=== PATIENT | female | born 1990 | race Caucasian/White ===

== ENCOUNTER → 2019-04-01 | Outpatient (CLI) | payer SELFPAY ==
[2019-04-02 00:19] LABS: Appearance,Urine Clear (Clear); Bilirubin,Urine Negative (Negative); Blood,Urine Negative (Negative); Color,Urine Yellow; Glucose,Urine (UA) Negative (Negative); Ketones,Urine 3+ (Negative); Leukocyte Esterase,Urine Negative (Negative); Nitrite,Urine Negative (Negative); PH, Urine 6.5 (5.0-8.0); Protein,Urine Trace (Negative); Specific Gravity,Urine 1.018 (1.001-1.035); Urobilinogen,Urine <2.0 mg/dL (<2.0)
[2019-04-02 01:20] VITALS: BP 99/54; PULSE 114; RESP 18; TEMP 97.5
--- NOTE | 2019-04-03 09:37 | P.MSEPDOC ---
Presenting Problems - Arrival Data Date of Arrival on Unit: 04/02/19 Time of Arrival on Unit: 23:44 Mode of Transport: Wheelchair - Complaint Comment: pt presents to triage for abd pain and cramping Medical History - Information : 4 Para: 3 Term: 3 : 0 Abortions: Spontaneous or Elective: 0 Number of Living Children: 3 - Gestational Age Gestational Age by KENNEY (wks/days): 29 Weeks and 5 Days - History Complications: Prior , Smoker Review of Systems - Review of Systems Constitutional: No problems Breast: No problems ENT: No problems Cardiovascular: No problems Respiratory: No problems Gastrointestinal: No problems Genitourinary: No problems Musculoskeletal: No problems Neurological: No problems Skin: No problems Vital Signs - Temperature Temperature: 97.5 F Temperature Source: Temporal Artery Scan - Pulse Right Brachial Pulse Rate: 114 Pulse Assessment Method: Automatic Cuff - Respirations Respiratory Rate: 18 Oxygen Delivery Method: Room Air - Blood Pressure Right Arm Blood Pressure: 99/54 Blood Pressure Mean: 69 Blood Pressure Source: Automatic Cuff Medical Screen Scoring (Pre) - Cervical Exam Dilation: 0 cm = 0 Effacement: Exam Deferred Membranes: Intact - Uterine Contractions Frequency: N/A, Scheduled / = 6 Duration: N/A Intensity: N/A - Maternal Vital Signs Maternal Temperature: N/A Signs of Preeclampsia: N/A Maternal Respirations: N/A - Maternal Trauma Maternal Trauma: N/A - Assessment - Baby A Baseline FHR: 140 Heart Rate - NICHD Category: Category I (Normal) = 0 NST: Reactive Position: N/A Station: N/A - Total Score - Baby A Total Score - Baby A: 6 - Total Score - Baby B Total Score - Baby B: 6 - Total Score - Baby C Total Score - Baby C: 6 - Level of Risk - Baby A Level of Risk - Baby A: Medium (6-9) - Level of Risk - Baby B Level of Risk - Baby B: Medium (6-9) - Level of Risk - Baby C Level of Risk - Baby C: Medium (6-9) Physician Notification (Pre) - Physician Notified Physician Notified Date: 04/02/19 Physician Notified Time: 00:45 Physician/Practitioner Notifed:: Dr. Kaplan Spoke With: Dr. Kaplan New Order Received: Yes - Notification Comment Comment: discharg pt home, follow up at next appt Disposition - Disposition OB Disposition: Triage, Discharge to home, Written follow up instructions reviewed Discharge Date: 04/02/19 Discharge Time: 00:55 I agree with the RN Medical Screening Exam: Yes Risk & Benefit of care provided described in d/c instruction: Yes Diagnosis: FALSE LABOR BEFORE 37 COMPLETED WEEKS OF GEST, THIRD TRI
== END | disposition home or self-care (01) ==
LOC: FBPOP 23:44
PROVIDERS: ATTEND Obstetrics & Gynecology
DX: O47.03 False labor before 37 completed weeks of gestation, third trimester (principal); Z3A.29 29 weeks gestation of pregnancy
CPT/HCPCS: 59025; 81003; 99213

== ENCOUNTER 2019-05-14 23:35 | Outpatient (CLI) | payer SELFPAY ==
[2019-05-15 00:08] LABS: Appearance,Urine Clear (Clear); Bilirubin,Urine Negative (Negative); Blood,Urine Negative (Negative); Color,Urine Light Yellow; Glucose,Urine (UA) Negative (Negative); Ketones,Urine Negative (Negative); Leukocyte Esterase,Urine Negative (Negative); Nitrite,Urine Negative (Negative); PH, Urine 7.5 (5.0-8.0); Protein,Urine Negative (Negative); Specific Gravity,Urine 1.006 (1.001-1.035); Urobilinogen,Urine <2.0 mg/dL (<2.0)
[2019-05-15 00:36] LABS: Amphetamine Screen,Urine Not Detected (NotDetected); Barbiturate Screen,Urine Not Detected (NotDetected); Benzodiazepines Screen,Urine Not Detected (NotDetected); Cocaine Screen,Urine Not Detected (NotDetected); Methadone Screen, Urine Not Detected (NotDetected); Opiate Screen,Urine Not Detected (NotDetected); Oxycodone Screen, Urine Not Detected (NotDetected); Phencyclidine Screen,Urine Not Detected (NotDetected); Tricyclic Antidepressant,Urine Not Detected (NotDetected); Urn Cannabinoid Scrn Detected (NotDetected)
[2019-05-15 01:25] LABS: ALT 18 U/L (9-52); AST 22 U/L (14-36); African American GFR (CKD) >90 (>60 ml/min/1.73 sqM); Albumin 3.6 g/dL (3.5-5.0); Alkaline Phosphatase 168 U/L (38-126); Anion Gap 9 mmol/L; Blood Urea Nitrogen 7 mg/dL (7-17); Calcium 8.9 mg/dL (8.4-10.2); Carbon Dioxide 20 mmol/L (22-30); Chloride 106 mmol/L (98-107); Glucose 74 mg/dL (74-99); Potassium 3.9 mmol/L (3.5-5.1); Sodium 135 mmol/L (137-145); Total Bilirubin 0.5 mg/dL (0.2-1.3); Total Protein 6.6 g/dL (6.3-8.2)
--- NOTE | 2019-05-15 02:02 | US ---
EXAM: US Abdomen Complete CLINICAL HISTORY: ITS.REASON US Reason: cholelithiasis TECHNIQUE: Real-time ultrasound of the abdomen (complete) with image documentation. COMPARISON: No relevant prior studies available. FINDINGS: Liver: 20 cm. No mass. No intrahepatic bile duct dilation. Gallbladder: No gallstones. No pericholecystic fluid. No gallbladder wall thickening. Negative Richards's sign. Common bile duct: Not visualized. Pancreas: Obscured. Kidneys: 13 cm right and 12 cm (No stones. Dilated right renal pelvis and possible ureter. Left kidney is normal. Spleen: Unremarkable. 11 cm. Aorta: No aneurysm. Inferior vena cava: Unremarkable. IMPRESSION: 1. Hepatomegaly. 2. Gallbladder appears unremarkable. 3. right kidney demonstrates possible right hydronephrosis versus pelvocaliectasis. No definite stone is identified.
--- NOTE | 2019-05-24 11:23 | P.MSEPDOC ---
Presenting Problems - Arrival Data Date of Arrival on Unit: 05/15/19 Time of Arrival on Unit: 23:39 Mode of Transport: Portable Physician Notification (Pre) - Notification Comment Comment: Dr Dumas at bedside Disposition - Disposition Discharge Date: 05/15/19 Discharge Time: 02:09 I agree with the RN Medical Screening Exam: Yes Risk & Benefit of care provided described in d/c instruction: Yes Diagnosis: CHOLECYSTITIS, UNSPECIFIED
== END 2019-05-15 02:10 | disposition home or self-care (01) ==
LOC: FBPOP 23:35
PROVIDERS: ATTEND Obstetrics & Gynecology
DX: O99.619 Diseases of the digestive system complicating pregnancy, unspecified trimester (principal); K81.9 Cholecystitis, unspecified; Z3A.00 Weeks of gestation of pregnancy not specified
CPT/HCPCS: 59025; 76700; 80053; 80306; 81003; 99213

== ENCOUNTER 2019-05-22 20:42 | Outpatient (CLI) | payer OTHER ==
[2019-05-22 21:41] LABS: Appearance,Urine Cloudy (Clear); Bilirubin,Urine Negative (Negative); Blood,Urine Negative (Negative); Color,Urine Yellow; Glucose,Urine (UA) Negative (Negative); Ketones,Urine Negative (Negative); Leukocyte Esterase,Urine Negative (Negative); Mucus,Urine Rare /hpf; Nitrite,Urine Negative (Negative); Protein,Urine Negative (Negative); Specific Gravity,Urine 1.013 (1.001-1.035); Squamous Epithelial Cell,Urine <1 /hpf (0-4); Urobilinogen,Urine <2.0 mg/dL (<2.0); WBC,Urine 2 /hpf (0-5)
[2019-05-22 21:53] LABS: Amphetamine Screen,Urine Not Detected (NotDetected); Barbiturate Screen,Urine Not Detected (NotDetected); Benzodiazepines Screen,Urine Not Detected (NotDetected); Cocaine Screen,Urine Not Detected (NotDetected); Methadone Screen, Urine Not Detected (NotDetected); Opiate Screen,Urine Not Detected (NotDetected); Oxycodone Screen, Urine Not Detected (NotDetected); Phencyclidine Screen,Urine Not Detected (NotDetected); Tricyclic Antidepressant,Urine Not Detected (NotDetected); Urn Cannabinoid Scrn Detected (NotDetected)
[2019-05-22 21:54] VITALS: BP 113/62; PULSE 117; RESP 16; TEMP 98
--- NOTE | 2019-05-22 22:39 | P.MSEPDOC ---
Presenting Problems - Arrival Data Date of Arrival on Unit: 05/22/19 Time of Arrival on Unit: 20:42 Mode of Transport: Ambulatory - Complaint OB-Reason for Admission/Chief Complaint: Possible Onset of Labor Comment: Contractions 3 time an hour since 1800 Medical History - Information : 4 Para: 3 Term: 3 : 0 Abortions: Spontaneous or Elective: 0 Number of Living Children: 3 - Gestational Age Gestational Age by KENNEY (wks/days): 36 Weeks and 6 Days - History Complications: Smoker, Hx. Substance Abuse Comment: THC Review of Systems - Review of Systems Constitutional: No problems Breast: No problems ENT: No problems Cardiovascular: No problems Respiratory: No problems Gastrointestinal: No problems Genitourinary: No problems Musculoskeletal: No problems Neurological: No problems Skin: No problems Vital Signs - Temperature Temperature: 98 F Temperature Source: Oral - Pulse Right Brachial Pulse Rate: 117 Pulse Assessment Method: Pulse Oximetry - Respirations Respiratory Rate: 16 Oxygen Delivery Method: Room Air - Blood Pressure Right Arm Blood Pressure: 113/62 Blood Pressure Mean: 79 Blood Pressure Source: Automatic Cuff Medical Screen Scoring (Pre) - Cervical Exam Dilation: Exam Deferred Effacement: Exam Deferred Membranes: Intact - Uterine Contractions Frequency: > 5 minutes apart = 1 Duration: > 40 seconds = 2 Intensity: N/A - Maternal Vital Signs Maternal Temperature: N/A Signs of Preeclampsia: N/A Maternal Respirations: N/A - Maternal Trauma Maternal Trauma: N/A - Assessment - Baby A Baseline FHR: 135 Heart Rate - NICHD Category: Category I (Normal) = 0 NST: Reactive - Total Score - Baby A Total Score - Baby A: 3 - Total Score - Baby B Total Score - Baby B: 3 - Total Score - Baby C Total Score - Baby C: 3 - Level of Risk - Baby A Level of Risk - Baby A: Low (0-5) - Level of Risk - Baby B Level of Risk - Baby B: Low (0-5) - Level of Risk - Baby C Level of Risk - Baby C: Low (0-5) Physician Notification (Pre) - Physician Notified Physician Notified Date: 05/22/19 Physician Notified Time: 20:50 Spoke With: Yahaira - Notification Comment Comment: Dr. Syed in to see pt Disposition - Disposition OB Disposition: Discharge to home, Written follow up instructions reviewed Discharge Date: 05/22/19 Discharge Time: 21:40 I agree with the RN Medical Screening Exam: Yes Risk & Benefit of care provided described in d/c instruction: Yes Diagnosis: FALSE LABOR BEFORE 37 COMPLETED WEEKS OF GEST, THIRD TRI (Patient presented to labor and delivery for evaluation of possible contractions. Patient states she's never felt contractions not sure what contractions and felt like to have some tightening her belly she talked to a friend who told her she was having contractions. Patient's cervix is closed and thick. heart tones are reactive. Patient does use marijuana on a daily basis and is seen by maternal medicine. At this time there is no evidence of labor. status is reassuring and therefore she will discharge home follow up with any concerns.)
== END 2019-05-22 21:40 | disposition home or self-care (01) ==
LOC: FBPOP 20:42
PROVIDERS: ATTEND Obstetrics & Gynecology
DX: O47.03 False labor before 37 completed weeks of gestation, third trimester (principal); Z3A.36 36 weeks gestation of pregnancy
CPT/HCPCS: 59025; 81001; 80306; G0463; 99213

== ENCOUNTER 2019-05-27 10:19 | Outpatient (CLI) | payer OTHER ==
[2019-05-27 10:44] VITALS: BP 97/61; PULSE 95; RESP 14; TEMP 97
--- NOTE | 2019-05-27 12:05 | US ---
EXAMINATION TYPE: US OB BPP wo non-stress DATE OF EXAM: 05/27/2019 COMPARISON: NONE CLINICAL HISTORY: medication . NST EXAM PERFORMED: Transabdominal (TA) BPP PARAMETERS: PRESENTATION: Vertex LIE: Longitudinal?? HEART RATE: 147 bpm RHYTHM: Normal CRISTIAN: 12.32 cm DIAPHRAGM IMAGED: Yes BPP SCORIN. Breathin (1 episode of breathing of 30 second duration in 30 minutes of scanning time) 2. Movement: 2 (at least 3 discrete body movements in 30 minutes) 3. Tone: 2 (1 episode of active flexion/extension of limb) 4. CRISTIAN: 2 (CRISTIAN index > 5cm) IMPRESSION: TOTAL SCORE: 8 / 8, however debris is noted throughout the amniotic fluid.
--- NOTE | 2019-05-29 08:51 | P.MSEPDOC ---
Presenting Problems - Arrival Data Date of Arrival on Unit: 05/27/19 Time of Arrival on Unit: 10:30 Mode of Transport: Portable - Complaint OB-Reason for Admission/Chief Complaint: Other Comment: sent from office for bpp and nst r/t to medication use Medical History - Information : 4 Para: 3 Term: 3 : 0 Abortions: Spontaneous or Elective: 0 Number of Living Children: 3 - Gestational Age Gestational Age by KENNEY (wks/days): 37 Weeks and 4 Days Review of Systems - Review of Systems Constitutional: No problems Breast: No problems ENT: No problems Cardiovascular: No problems Respiratory: No problems Gastrointestinal: No problems Genitourinary: No problems Musculoskeletal: No problems Neurological: No problems Skin: No problems Vital Signs - Temperature Temperature: 97 F - Pulse Right Brachial Pulse Rate: 95 Pulse Assessment Method: Automatic Cuff - Respirations Respiratory Rate: 14 Oxygen Delivery Method: Room Air - Blood Pressure Right Arm Blood Pressure: 97/61 Blood Pressure Mean: 73 Blood Pressure Source: Automatic Cuff Physician Notification (Post) - Physician Notified Physician Notified Date: 05/27/19 Physician Notified Time: 11:27 Physician/Practitioner Notified:: berto Spoke With: berto New Order Received: Yes - Notification Comment Comment: reported reactive nst, and 05/22 bpp. pt may be discharged home Disposition - Disposition OB Disposition: Discharge to home Discharge Date: 05/27/19 Discharge Time: 11:36 I agree with the RN Medical Screening Exam: Yes Risk & Benefit of care provided described in d/c instruction: Yes Diagnosis: RELATED CONDITIONS, UNSPECIFIED, THIRD TRIMESTER
== END 2019-05-27 11:37 | disposition home or self-care (01) ==
LOC: FBPOP 10:19
PROVIDERS: ATTEND Obstetrics & Gynecology
DX: O26.93 Pregnancy related conditions, unspecified, third trimester (principal); Z3A.37 37 weeks gestation of pregnancy
CPT/HCPCS: 59025; 76819

== ENCOUNTER 2019-05-31 22:05 | Outpatient (CLI) | payer OTHER ==
[2019-05-31 23:42] VITALS: BP 97/61; PULSE 95; RESP 16; TEMP 96.4
--- NOTE | 2019-06-01 22:10 | P.MSEPDOC ---
Presenting Problems - Arrival Data Date of Arrival on Unit: 05/31/19 Time of Arrival on Unit: 22:05 Mode of Transport: Ambulatory - Complaint OB-Reason for Admission/Chief Complaint: Possible Onset of Labor Comment: Cramping since 1800, 04/23 pain Medical History - Information : 4 Para: 3 Term: 3 : 0 Abortions: Spontaneous or Elective: 0 Number of Living Children: 3 - Gestational Age Gestational Age by KENNEY (wks/days): 38 Weeks and 1 Days - History Complications: Smoker, Hx. Substance Abuse Comment: THC- daily Review of Systems - Review of Systems Constitutional: No problems Breast: No problems ENT: No problems Cardiovascular: No problems Respiratory: No problems Gastrointestinal: No problems Genitourinary: No problems Musculoskeletal: No problems Neurological: No problems Skin: No problems Vital Signs - Temperature Temperature: 96.4 F Temperature Source: Temporal Artery Scan - Pulse Right Brachial Pulse Rate: 95 Pulse Assessment Method: Automatic Cuff - Respirations Respiratory Rate: 16 Oxygen Delivery Method: Room Air - Blood Pressure Right Arm Blood Pressure: 97/61 Blood Pressure Mean: 73 Blood Pressure Source: Automatic Cuff Medical Screen Scoring (Pre) - Cervical Exam Dilation: 0 cm = 0 Effacement: Exam Deferred Membranes: Intact - Uterine Contractions Frequency: > 5 minutes apart = 1 Duration: > 40 seconds = 2 Intensity: N/A - Maternal Vital Signs Maternal Temperature: N/A Signs of Preeclampsia: N/A Maternal Respirations: N/A - Maternal Trauma Maternal Trauma: N/A - Assessment - Baby A Baseline FHR: 145 Heart Rate - NICHD Category: Category I (Normal) = 0 NST: Reactive - Total Score - Baby A Total Score - Baby A: 3 - Total Score - Baby B Total Score - Baby B: 3 - Total Score - Baby C Total Score - Baby C: 3 - Level of Risk - Baby A Level of Risk - Baby A: Low (0-5) - Level of Risk - Baby B Level of Risk - Baby B: Low (0-5) - Level of Risk - Baby C Level of Risk - Baby C: Low (0-5) Physician Notification (Pre) - Physician Notified Physician Notified Date: 05/31/19 Physician Notified Time: 23:17 Physician/Practitioner Notifed:: Dr. Kaplan - Notification Comment Comment: Report vag exam closed/thick/high and no change after 1 hour. Pt follow up 06/[address] Dumas Disposition - Disposition OB Disposition: Discharge to home, Written follow up instructions reviewed Discharge Date: 05/31/19 Discharge Time: 23:18 I agree with the RN Medical Screening Exam: Yes Risk & Benefit of care provided described in d/c instruction: Yes Diagnosis: FALSE LABOR AT OR AFTER 37 COMPLETED WEEKS OF GESTATION
== END 2019-05-31 23:18 | disposition home or self-care (01) ==
LOC: FBPOP 22:05
PROVIDERS: ATTEND Obstetrics & Gynecology
DX: O47.1 False labor at or after 37 completed weeks of gestation (principal); O99.333 Smoking (tobacco) complicating pregnancy, third trimester; F17.200 Nicotine dependence, unspecified, uncomplicated; Z3A.38 38 weeks gestation of pregnancy
CPT/HCPCS: 59025; G0463; 99213

== ENCOUNTER 2019-06-04 10:36 | Outpatient (CLI) | payer OTHER ==
--- NOTE | 2019-06-04 11:24 | US ---
EXAMINATION TYPE: US OB BPP wo non-stress DATE OF EXAM: 06/04/2019 COMPARISON: US CLINICAL HISTORY: medication exposure . Medication exposure EXAM PERFORMED: Transabdominal (TA) BPP PARAMETERS: PRESENTATION: Vertex HEART RATE: 140 bpm RHYTHM: Normal CRISTIAN: 13.8 DIAPHRAGM IMAGED: YES BPP SCORIN. Breathin (1 episode of breathing of 30 second duration in 30 minutes of scanning time) 2. Movement: 2 (at least 3 discrete body movements in 30 minutes) 3. Tone: 2 (1 episode of active flexion/extension of limb) 4. CRISTIAN: 2 (CRISTIAN index > 5cm) TOTAL SCORE: 8 / 8
[2019-06-04 12:11] VITALS: BP 104/60; PULSE 92; RESP 14; TEMP 98.2
--- NOTE | 2019-06-04 13:42 | US ---
EXAMINATION TYPE: US OB >= 14 wk fetus DATE OF EXAM: 06/04/2019 COMPARISON: None TECHNIQUE: Transabdominal (TA) GESTATIONAL AGE / DATING Physician Established: (38 weeks/5 days) EDC: 06/13/2019 Dates by Current Scan: (39 weeks/1 days) EDC: 06/10/2019 SURVEY IUP: Single PLACENTA: Anterior PREVIA: No Previa CRISTIAN: 13.8 cm Normal CERVICAL LENGTH (transabdominal: norm > 3.0cm): 3.2 cm BIOMETRY PRESENTATION: Vertex BPD: 9.5 cm 38 weeks / 4 days HC: 34.6 cm 40 weeks / 0 days AC: 36.0 cm 40 weeks / 0 days FL: 7.4 cm 38 weeks / 0 days ESTIMATED WEIGHT IN GRAMS: 3751 grams ESTIMATED WEIGHT IN LBS/OZ: 8 lbs. 4 oz. WEIGHT PERCENTAGE BASED ON ESTABLISHED DATES: 81% HC/AC: 0.96 Normal FL/AC: 21 Normal HEART RATE: 140 bpm RHYTHM: Normal IMPRESSION: Single viable intrauterine corresponding to ultrasound age 39 weeks 1 day with estimated da te of delivery 06/10/2019. Anterior placenta. Limited survey.
--- NOTE | 2019-06-11 08:45 | P.MSEPDOC ---
Presenting Problems - Arrival Data Date of Arrival on Unit: 06/04/19 Time of Arrival on Unit: 10:36 Mode of Transport: Ambulatory - Complaint OB-Reason for Admission/Chief Complaint: Other Comment: bpp, nst Medical History - Information : 4 Para: 3 Term: 3 : 0 Abortions: Spontaneous or Elective: 0 Number of Living Children: 3 - Gestational Age Gestational Age by KENNEY (wks/days): 38 Weeks and 5 Days - History Complications: Smoker Comment: medication exposure in Review of Systems - Review of Systems Constitutional: No problems Breast: No problems ENT: No problems Cardiovascular: No problems Respiratory: No problems Gastrointestinal: No problems Genitourinary: No problems Musculoskeletal: No problems Neurological: No problems Skin: No problems Vital Signs - Temperature Temperature: 98.2 F Temperature Source: Oral - Pulse Right Brachial Pulse Rate: 92 - Respirations Respiratory Rate: 14 Oxygen Delivery Method: Room Air - Blood Pressure Right Arm Blood Pressure: 104/60 Blood Pressure Mean: 74 Blood Pressure Source: Automatic Cuff Medical Screen Scoring (Pre) - Cervical Exam Dilation: Exam Deferred - Uterine Contractions Frequency: N/A Duration: N/A Intensity: N/A - Maternal Vital Signs Maternal Temperature: N/A Maternal Blood Pressure: N/A Signs of Preeclampsia: N/A Maternal Respirations: N/A - Maternal Trauma Maternal Trauma: N/A - Assessment - Baby A Baseline FHR: 125 Heart Rate - NICHD Category: Category I (Normal) = 0 NST: Reactive Position: N/A - Total Score - Baby A Total Score - Baby A: 0 - Total Score - Baby B Total Score - Baby B: 0 - Total Score - Baby C Total Score - Baby C: 0 - Level of Risk - Baby A Level of Risk - Baby A: Low (0-5) - Level of Risk - Baby B Level of Risk - Baby B: Low (0-5) - Level of Risk - Baby C Level of Risk - Baby C: Low (0-5) Medical Screen Scoring (Post) - Cervical Exam Dilation: Exam Deferred - Uterine Contractions Frequency: N/A - Maternal Vital Signs Maternal Temperature: N/A Maternal Blood Pressure: N/A Signs of Preeclampsia: N/A Maternal Respirations: N/A - Pain Assessment Pain Location and Character: Back Pain Scale Used: Numeric (1 - 10) Pain Intensity: 8 Pain Description: *Acute Pain Frequency: Constant Pain Duration Units: Years - Maternal Trauma Maternal Trauma: N/A - Assessment - Baby A Heart Rate: 125 Heart Rate - NICHD Category: Category I (Normal) = 0 NST: Reactive Position: N/A - Total Score Total Score - Baby A: 0 Total Score - Baby B: 0 Total Score - Baby C: 0 - Post Treatment Level of Risk Post Treatment Level of Risk - Baby A: Low (0-5) Post Treatment Level of Risk - Baby B: Low (0-5) Post Treatment Level of Risk - Baby C: Low (0-5) Physician Notification (Post) - Physician Notified Physician Notified Date: 06/04/19 Physician Notified Time: 11:44 Physician/Practitioner Notified:: berto Spoke With: berto New Order Received: Yes - Notification Comment Comment: reactive nst, 05/22 bpp, dr christiansen pt, schedule for repeat sunday Disposition - Disposition OB Disposition: Discharge to home Discharge Date: 06/04/19 Discharge Time: 11:58 I agree with the RN Medical Screening Exam: Yes Risk & Benefit of care provided described in d/c instruction: Yes Diagnosis: RELATED CONDITIONS, UNSPECIFIED, THIRD TRIMESTER (drug use)
== END 2019-06-04 11:58 | disposition home or self-care (01) ==
LOC: FBPOP 10:36
PROVIDERS: ATTEND Obstetrics & Gynecology
DX: O26.93 Pregnancy related conditions, unspecified, third trimester (principal); Z3A.38 38 weeks gestation of pregnancy
CPT/HCPCS: 59025; 76805; 76819

== ENCOUNTER 2019-06-06 04:23 | Inpatient (IN) | payer OTHER ==
[2019-06-06] MEDS ORDERED: CITRIC ACID-SODIUM CITRATE 15 ML CUP PO ONE (05:06)
[2019-06-06] MEDS: LACTATED RINGERS 1,000 ML IV SCH ×3 (05:27→13:31)
[2019-06-06 05:35] LABS: Basophils % (A) 0 %; Eosinophils # (A) 0.1 k/uL (0-0.7); Eosinophils % (A) 1 %; HCT 37.9 % (34.0-46.0); HGB 12.6 gm/dL (11.4-16.0); Lymphocytes # (A) 1.9 k/uL (1.0-4.8); Lymphocytes % (A) 16 %; MCH 29.6 pg (25.0-35.0); MCHC 33.2 g/dL (31.0-37.0); MCV 88.9 fL (80.0-100.0); Mean Platelet Volume 7.1; Monocytes # (A) 0.7 k/uL (0-1.0); Monocytes % (A) 6 %; Neutrophils # (A) 8.8 k/uL (1.3-7.7); Neutrophils % (A) 75 %; Platelet Count 293 k/uL (150-450); RBC 4.26 m/uL (3.80-5.40); RDW 14.1 % (11.5-15.5); WBC 11.7 k/uL (3.8-10.6)
[2019-06-06 05:41] VITALS: BMI 27.4
[2019-06-06 06:06] LABS: Amphetamine Screen,Urine Not Detected (NotDetected); Barbiturate Screen,Urine Not Detected (NotDetected); Benzodiazepines Screen,Urine Not Detected (NotDetected); Cocaine Screen,Urine Not Detected (NotDetected); Methadone Screen, Urine Not Detected (NotDetected); Opiate Screen,Urine Not Detected (NotDetected); Oxycodone Screen, Urine Not Detected (NotDetected); Phencyclidine Screen,Urine Not Detected (NotDetected); Tricyclic Antidepressant,Urine Not Detected (NotDetected); Urn Cannabinoid Scrn Detected (NotDetected)
[2019-06-06] MEDS ORDERED: ACETAMINOPHEN TAB 325 MG TAB PO PRN (06:39)
[2019-06-06] MEDS ORDERED: diphenhydrAMINE 25 MG CAP PO PRN (06:39)
[2019-06-06] MEDS ORDERED: SIMETHICONE 80 MG CHEWABLE PO PRN (06:39)
[2019-06-06] MEDS ORDERED: METOCLOPRAMIDE 5 MG/ML 2 ML VIAL IVP PRN (06:39)
[2019-06-06] MEDS ORDERED: ONDANSETRON 4 MG/2 ML VIAL IVP PRN (06:39)
[2019-06-06] MEDS ORDERED: diphenhydrAMINE 50 MG/ML 1 ML VIAL IVP PRN ×2 (06:39)
[2019-06-06] MEDS ORDERED: NALOXONE 0.4 MG/ML 1 ML VIAL IV PRN ×2 (06:39→07:12)
[2019-06-06] MEDS ORDERED: KETOROLAC 30 MG/ML 1 ML VIAL IVP PRN (06:39)
[2019-06-06] MEDS ORDERED: diphenhydrAMINE 50 MG CAP PO PRN (06:39)
[2019-06-06] MEDS ORDERED: ZOLPIDEM 5 MG TAB PO PRN (06:39)
[2019-06-06] MEDS ORDERED: OXYTOCIN 20 UNITS/1000 ML NS 1,000 ML IV SCH (06:45)
[2019-06-06] MEDS ORDERED: LACTATED RINGERS 1,000 ML IV SCH (06:45)
--- NOTE | 2019-06-06 06:56 | P.HPOB ---
History of Present Illness H&P Date: 06/06/19 Chief Complaint: Spontaneous rupture membranes, previous section 29-year-old presents at 38 weeks and 6 days with spontaneous rupture of membranes at 3 AM. Her cervix is 1 cm dilated and she is not dhruv. heart tones 130s with moderate variability and reactive. She's had 3 previous sections and plans repeat. Review of Systems All systems: negative Constitutional: Denies chills, Denies fever Eyes: denies blurred vision, denies pain Ears, nose, mouth and throat: Denies headache, Denies sore throat Cardiovascular: Denies chest pain, Denies shortness of breath Respiratory: Denies cough Gastrointestinal: Denies abdominal pain, Denies diarrhea, Denies nausea, Denies vomiting Genitourinary: Denies dysuria, Denies hematuria Musculoskeletal: Denies myalgias Integumentary: Denies pruritus, Denies rash Neurological: Denies numbness, Denies weakness Psychiatric: Denies anxiety, Denies depression Endocrine: Denies fatigue, Denies weight change Past Medical History Additional Past Medical History / Comment(s): Obstetric history: First was a section and the baby did have gastroschisis and then due to a brain bleed 7 days later has cerebral palsy. Her next 2 pregnancies were sections at 39 weeks. This is her fourth . She's had care with Dr. Dumas since 15 weeks. She was incarcerated at the beginning of her but when she started seeing Dr. Dumas 15 weeks she had a very been released. Blood type is O+, antibodies negative, rubella immune, hepatitis B negative, negative quad screen GBS negative. She went to [facility] for her history of using Effexor during the . The ultrasounds are fine patient states the echo was normal but she was told that the baby with the neck go after was born to ensure that the ductus arteriosus closed. History of Any Multi-Drug Resistant Organisms: None Reported Past Surgical History: Adenoidectomy, Section, Orthopedic Surgery, Tonsillectomy Additional Past Surgical History / Comment(s): shoulder, spleen Past Anesthesia/Blood Transfusion Reactions: No Reported Reaction Past Psychological History: ADD/ADHD, Anxiety, Bipolar, Depression Smoking Status: Current every day smoker Past Alcohol Use History: Occasional Past Drug Use History: Marijuana Additional Drug Use History / Comment(s): states she quit during this - Past Family History Mother Family Medical History: No Reported History Medications and Allergies Home Medications Medication Instructions Recorded Confirmed Type Pnv No.95/Ferrous Fum/Folic AC 1 each PO DAILY 04/01/19 06/06/19 History [ Multivitamin Tablet] Venlafaxine HCl [Effexor] 37.5 mg PO ONCE 05/14/19 06/06/19 History Allergies Allergy/AdvReac Type Severity Reaction Status Date / Time No Known Allergies Allergy Verified 06/06/19 04:31 Exam Osteopathic Statement: *. No significant issues noted on an osteopathic structural exam other than those noted in the History and Physical/Consult. Vital Signs Temp Pulse Resp BP Pulse Ox 06/06/19 05:42 96.4 F L 97 18 119/77 98 06/06/19 05:34 96.4 F L 97 18 119/77 98 Intake and Output 06/05/19 06/05/19 06/06/19 14:59 22:59 06:59 Other: Weight 72.575 kg Heart: Regular rate and rhythm Lungs: Clear to auscultation bilaterally Abdomen: Soft, nontender Extremities: Negative Homans sign Results Result Diagrams: 06/06/19 05:09 Abnormal Lab Results - Last 24 Hours (Table) 06/06/19 06/06/19 Range/Units 05:09 05:27 WBC 11.7 H (3.8-10.6) k/uL Neutrophils # 8.8 H (1.3-7.7) k/uL U Marijuana (THC) Screen Detected H (NotDetected) Assessment and Plan (1) Spontaneous rupture of membranes Current Visit: Yes Status: Acute Code(s): LBN6681 - SNOMED Code(s): 615315042 (2) Previous section Current Visit: Yes Status: Acute Code(s): Z98.891 - HISTORY OF UTERINE SCAR FROM PREVIOUS SURGERY SNOMED Code(s): 659390570 Plan: 1. Admit to family place 2. Prepare for repeat low transverse
--- NOTE | 2019-06-06 06:58 | P.OP ---
Date of Procedure: 06/06/19 Preoperative Diagnosis: 1. at 38 weeks and 6 days 2. Previous section 3. Spontaneous rupture membranes Postoperative Diagnosis: 1. at 38 weeks and 6 days 2. Suspicious rupture of membranes 3. Previous section Procedure(s) Performed: Repeat low transverse Anesthesia: spinal Surgeon: Chiquita Kaplan [employer] Coach #1: Jazmine Wynn Estimated Blood Loss (ml): 600 IV fluids (ml): 800 Urine output (ml): 200 Pathology: none sent Condition: stable Disposition: floor Operative Findings: Normal uterus, tubes, ovaries. Viable male, Apgars 7, 8, weight 3820 g Description of Procedure: Patient was taken to the operating room where spinal anesthesia was found be adequate. She was prepped and draped in normal sterile fashion in dorsal supine position with a leftward tilt. Pfannenstiel skin incision was made the scalpel and carried through to the underlying layer of fascia with the scalpel. Fascia was incised in midline and carried bilaterally with the Obrien scissors. The superior aspect of the fascial incision was grasped with Danny clamps elevated and the underlying rectus muscles dissected off with the Obrien's. Attention was then turned to inferior aspect of same incision which in a similar fashion was grasped tented up and the underlying rectus muscles dissected off with the Obrien's. The rectus muscles were the midline and the peritoneum was identified tented up and entered sharply with the scalpel. The incision was extended superiorly and inferiorly with good visualization of the bladder. The bladder blade was inserted and the vesicouterine peritoneum was incised the Metzenbaums then carried bilaterally and bladder flap created digitally. A low transverse incision was then made on the uterus with the scalpel. This was carried bilaterally and digital manner. Infant's head delivered atraumatically, nose and mouth bulb suctioned, cord clamped and cut, infant handed off to waiting nurses. Apgars 7,8, weight 3820 g. Placenta delivered manually, intact with three-vessel cord. The uterus is exteriorized and cleared of all clots and debris. The uterine incision was closed with 0 Vicryl in a running locked fashion. Second layer of the same sutures used in imbricating fashion to obtain excellent hemostasis. Bladder flap was then reapproximated using 2-0 Vicryl in a running fashion. Both ovaries and tubes appeared normal. The uterus was placed back into the abdomen. The peritoneum was reapproximated using 2-0 Vicryl in a running fashion. The muscles were reapproximated using 2-0 Vicryl in interrupted fashion. The fascia was reapproximated using 0 Vicryl in a running fashion. The subcutaneous tissues closed with 3-0 Vicryl running fashion. The skin was closed carlos. Patient tolerated the procedure well, sponge and instrument counts were correct times 2 and she was taken to the recovery room in stable condition.
[2019-06-06] MEDS ORDERED: NALBUPHINE 10 MG/ML (1 ML AMP) IV PRN (07:12)
[2019-06-06] MEDS ORDERED: MORPHINE SULFATE 2 MG/ML SYRINGE IVP PRN (07:12)
[2019-06-06] MEDS: SENNOSIDES-DOCUSATE SODIUM 1 EACH TAB PO SCH ×2 (12:10→22:12)
[2019-06-06] MEDS ORDERED: VENLAFAXINE HCL 37.5 MG TAB PO STA (12:49)
[2019-06-06] MEDS: KETOROLAC 30 MG/ML 1 ML VIAL IVP PRN ×2 (15:49→23:55)
[2019-06-06] MEDS: HYDROcodone/APAP 7.5-325MG 1 EACH TAB PO PRN (22:11)
[2019-06-07] MEDS: HYDROcodone/APAP 7.5-325MG 1 EACH TAB PO PRN ×3 (07:24→22:52)
[2019-06-07 07:26] LABS: Basophils % (A) 0 %; Eosinophils # (A) 0.1 k/uL (0-0.7); Eosinophils % (A) 1 %; HCT 31.2 % (34.0-46.0); HGB 10.3 gm/dL (11.4-16.0); Lymphocytes # (A) 1.5 k/uL (1.0-4.8); Lymphocytes % (A) 12 %; MCH 29.7 pg (25.0-35.0); MCHC 33.1 g/dL (31.0-37.0); MCV 89.5 fL (80.0-100.0); Mean Platelet Volume 8.1; Monocytes # (A) 0.5 k/uL (0-1.0); Monocytes % (A) 4 %; Neutrophils % (A) 81 %; Platelet Count 244 k/uL (150-450); RBC 3.49 m/uL (3.80-5.40); RDW 14.4 % (11.5-15.5); WBC 12.3 k/uL (3.8-10.6)
--- NOTE | 2019-06-07 10:59 | P.PN ---
Progress Note - Text Progress Note Date: 06/07/19 POD 1 from c section with morphine spinal. doing well, denies any parasthesia, lower ext numbness, excessive pruritis or excessive pain. Able to ambulate, urinate this morning.
[2019-06-07] MEDS: IBUPROFEN 600 MG TAB PO PRN ×2 (12:00→20:27)
--- NOTE | 2019-06-07 12:21 | P.PNOBGPC ---
Subjective - Subjective Principal diagnosis: Status post repeat section postoperative day #1. Interval history: Patient is doing okay. She is sore but is ambulating. Lochia is decreasing. She is passing flatus but no bowel movement yet. Baby is in level I nursery. Patient reports: Reports appetite normal, Reports voiding normally, Reports pain well controlled, Reports ambulating normally [place]: other (In level I nursery) Objective - Vital Signs Latest vital signs: Vital Signs Temp Pulse Resp BP Pulse Ox 06/07/19 07:59 97.5 F L 74 18 103/54 100 06/07/19 06:00 18 06/07/19 04:00 97.5 F L 74 16 116/57 100 06/07/19 02:00 18 06/07/19 00:00 97.5 F L 76 18 86/54 98 06/06/19 22:00 18 06/06/19 20:00 97.0 F L 75 19 101/57 100 06/06/19 18:00 18 06/06/19 15:59 97.5 F L 78 18 98/61 100 06/06/19 14:00 18 Intake and Output 06/06/19 06/07/19 06/07/19 22:59 06:59 14:59 Intake Total 600 Output Total 450 150 Balance -450 450 Intake: Oral 600 Output: Urine 450 150 Uretheral (Doshi) 200 Other: # Voids 1 - Exam Extremities: Present: normal. Absent: tenderness Abdomen: Present: normal appearance, soft (Positive bowel sounds 4). Absent: distention, tenderness Incision: Present: normal, dry, intact. Absent: erythematous Uterus: Present: normal, firm. Absent: tenderness - Labs Labs: Abnormal Lab Results - Last 24 Hours (Table) 06/07/19 Range/Units 06:53 WBC 12.3 H (3.8-10.6) k/uL RBC 3.49 L (3.80-5.40) m/uL Hgb 10.3 L (11.4-16.0) gm/dL Hct 31.2 L (34.0-46.0) % Neutrophils # 10.0 H (1.3-7.7) k/uL Assessment and Plan Assessment: Status post repeat section postoperative day #1 Plan: Will continue with postoperative care today. Will restart Effexor 37.5 ER daily. Patient states she is unsure if she was on the extended release or regular Effexor and never did take it at the same time a day every day high her to this. Encouraged to ambulate.
[2019-06-07] MEDS: VENLAFAXINE HCL ER 37.5 MG CAP PO SCH (16:42)
[2019-06-07] MEDS: SENNOSIDES-DOCUSATE SODIUM 1 EACH TAB PO SCH ×2 (17:06→20:28)
[2019-06-08] MEDS: HYDROcodone/APAP 7.5-325MG 1 EACH TAB PO PRN ×3 (07:07→19:21)
[2019-06-08] MEDS: SENNOSIDES-DOCUSATE SODIUM 1 EACH TAB PO SCH ×2 (08:00→20:49)
--- NOTE | 2019-06-08 08:02 | P.PNOBGPC ---
Subjective - Subjective Principal diagnosis: Status post section postoperative day #2 Interval history: Patient is complaining of pain and states that her pain medication is not working adequately for her incisional pain. When I asked if she was alternating between ibuprofen and [place], she states that ibuprofen and Tylenol do not work for her. She is passing some flatus but no bowel movement. She is ambulating. Patient reports: Reports appetite normal, Reports voiding normally, Reports pain poorly controlled, Reports ambulating normally [place]: other (In level I nursery) Objective - Vital Signs Latest vital signs: Vital Signs Temp Pulse Resp BP Pulse Ox 06/07/19 23:11 98.1 F 82 17 104/60 98 06/07/19 16:00 97.7 F 81 18 114/74 100 - Exam Extremities: Present: normal. Absent: tenderness, edema Abdomen: Present: normal appearance, soft (Positive bowel sounds 4). Absent: distention, tenderness Incision: Present: normal, dry, intact. Absent: erythematous Uterus: Present: normal, firm. Absent: tenderness Assessment and Plan Assessment: Status post section postoperative day #2 Plan: Patient encouraged to alternate between ibuprofen and [place] because her overall pain level will be decreased if she continues to take the Motrin on a regular basis. She was encouraged to go on a schedule where she is alternating her pain medications so that she is getting something every 3 hours. She is also encouraged to continue ambulating. Continue with postoperative care.
[2019-06-08] MEDS: IBUPROFEN 600 MG TAB PO PRN ×3 (10:14→22:31)
[2019-06-08] MEDS: VENLAFAXINE HCL ER 37.5 MG CAP PO SCH (10:14)
[2019-06-09] MEDS: HYDROcodone/APAP 7.5-325MG 1 EACH TAB PO PRN ×4 (01:45→20:39)
[2019-06-09] MEDS: IBUPROFEN 600 MG TAB PO PRN ×4 (04:48→22:49)
[2019-06-09] MEDS: SENNOSIDES-DOCUSATE SODIUM 1 EACH TAB PO SCH ×2 (08:14→20:49)
--- NOTE | 2019-06-09 08:29 | P.PNOBGPC ---
Subjective - Subjective Principal diagnosis: Postop day 3 Interval history: Overall Jaz is doing well. She's ablating and voiding. She is tolerating her diet and voicing no complaints. Vital signs are stable and afebrile. Heart regular, lungs clear, extremities without pain. Abdomen soft uterus is firm and lochia is reported light. Incisions clean dry and intact. Assessment postop day 3. Plan continue care. Should baby did be discharged home later today we'll plan discharged today, however otherwise we'll plan discharged home tomorrow. Patient reports: Reports appetite normal, Reports voiding normally, Reports pain well controlled, Reports ambulating normally [place]: in NICU Objective - Vital Signs Latest vital signs: Vital Signs Temp Pulse Resp BP Pulse Ox 06/09/19 08:00 98.7 F 77 14 90/73 06/09/19 00:00 97.8 F 77 18 93/57 99 06/08/19 15:57 98.6 F 81 16 96/61
[2019-06-09] MEDS: VENLAFAXINE HCL ER 37.5 MG CAP PO SCH (09:30)
[2019-06-09 18:35] VITALS: RESP 16
[2019-06-10] MEDS: HYDROcodone/APAP 7.5-325MG 1 EACH TAB PO PRN ×3 (02:04→14:28)
[2019-06-10] MEDS: IBUPROFEN 600 MG TAB PO PRN ×3 (04:56→17:18)
--- NOTE | 2019-06-10 08:08 | P.DS ---
Providers Date of admission: 06/06/19 04:49 Expected date of discharge: 06/10/19 Attending physician: Jose Dumas Primary care physician: Stated None Hospital Course: Jaz is doing very well postop day 4. She is ambulating, voiding tolerating her diet. She voices no complaints. Vital signs are stable and afebrile. Heart regular, lungs clear, extremities without pain. Abdomen soft uterus is firm and lochia is reported light. Her incision is clean dry and intact will plan to remove carlos today. It is noted again today that she related that she been smoking marijuana throughout the despite from both myself and ma ternal medicine that this was inappropriate and that could affect the baby. She relates that she had a medical marijuana card and that she felt that that was enough justification for her to be able to continue to use despite risks. All the questions were answered for her today prior to discharge discharge instructions also thoroughly reviewed. She is stable for discharge at this time. Patient Condition at Discharge: Good Plan - Discharge Summary New Discharge Prescriptions: New Methocarbamol [Robaxin] 750 mg PO QID #90 tab Ibuprofen [Motrin] 600 mg PO Q6HR PRN #30 tab PRN Reason: Pain HYDROcodone/APAP 5-325MG [[place] 5-325] 1 tab PO Q4HR PRN #30 tab PRN Reason: Pain No Action Pnv No.95/Ferrous Fum/Folic AC [ Multivitamin Tablet] 1 each PO DAILY Venlafaxine HCl [Effexor] 37.5 mg PO ONCE Discharge Medication List Pnv No.95/Ferrous Fum/Folic AC [ Multivitamin Tablet] 1 each PO DAILY 04/01/19 [History] Venlafaxine HCl [Effexor] 37.5 mg PO ONCE 05/14/19 [History] HYDROcodone/APAP 5-325MG [[place] 5-325] 1 tab PO Q4HR PRN #30 tab 06/10/19 [Rx] Ibuprofen [Motrin] 600 mg PO Q6HR PRN #30 tab 06/10/19 [Rx] Methocarbamol [Robaxin] 750 mg PO QID #90 tab 06/10/19 [Rx] Follow up Appointment(s)/Referral(s): Jose Dumas DO [Doctor of Osteopathic Medicine] - 1 Week Activity/Diet/Wound Care/Special Instructions: No heavy lifting, limit stairs and driving, and pelvic rest. If any high temperatures, heavy bleeding, or severe pain call my office
[2019-06-10] MEDS: SENNOSIDES-DOCUSATE SODIUM 1 EACH TAB PO SCH (08:18)
[2019-06-10] MEDS: VENLAFAXINE HCL ER 37.5 MG CAP PO SCH (08:19)
[2019-06-10 17:24] VITALS: BP 110/60; PULSE 83; TEMP 98.5
== END 2019-06-10 18:32 | disposition home or self-care (01) | DRG 787 ==
LOC: FBPOP 04:23 → 4FBP 04:49
PROVIDERS: ADMIT Obstetrics & Gynecology; ATTEND Obstetrics & Gynecology
PROC: 10D00Z1 Extraction of Products of Conception, Low, Open Approach (ICD-10-PCS; principal; 2019-06-06 05:15)
DX: O34.211 Maternal care for low transverse scar from previous cesarean delivery (principal); O99.324 Drug use complicating childbirth; O99.334 Smoking (tobacco) complicating childbirth; F17.210 Nicotine dependence, cigarettes, uncomplicated; Z3A.38 38 weeks gestation of pregnancy; Z37.0 Single live birth; O99.344 Other mental disorders complicating childbirth; F90.9 Attention-deficit hyperactivity disorder, unspecified type; F41.9 Anxiety disorder, unspecified; F31.9 Bipolar disorder, unspecified; F12.90 Cannabis use, unspecified, uncomplicated
CPT/HCPCS: 59025; 80306; 84112; 85025; 86850; 86900; 86901; 99213

== ENCOUNTER 2022-02-06 06:11 | Inpatient (IN) | payer OTHER ==
[2022-02-02 16:27] VITALS: BMI 26.5
[2022-02-06] MEDS ORDERED: CITRIC ACID-SODIUM CITRATE 15 ML CUP ONE (06:30)
[2022-02-06] MEDS ORDERED: ACETAMINOPHEN TAB 500 MG TAB ONE (06:30)
[2022-02-06] MEDS ORDERED: LACTATED RINGERS 1,000 ML BAG IV ONE (06:30)
[2022-02-06] MEDS ORDERED: CITRIC ACID-SODIUM CITRATE 15 ML CUP PO ONE (07:00)
[2022-02-06] MEDS ORDERED: LACTATED RINGERS 1,000 ML IV SCH (07:00)
[2022-02-06] MEDS ORDERED: ONDANSETRON 4 MG/2 ML VIAL ONE (08:01)
[2022-02-06] MEDS ORDERED: KETOROLAC 15 MG/ML 1 ML VIAL ONE (08:01)
[2022-02-06] MEDS ORDERED: MORPHINE SULFATE (PF) 0.3 MG/0.3 ML SYR ONE (08:01)
[2022-02-06] MEDS ORDERED: PHENYLEPHRINE-0.9% NACL SYG 1,000 MCG/10 ML SYRINGE ONE (08:01)
[2022-02-06] MEDS ORDERED: NALBUPHINE 10 MG/ML (1 ML AMP) ONE (08:01)
[2022-02-06] MEDS ORDERED: OXYTOCIN 30 UNITS/500 ML NS BAG IV ONE (08:01)
[2022-02-06] MEDS ORDERED: NALBUPHINE 10 MG/ML (1 ML AMP) IV PRN (10:54)
[2022-02-06] MEDS ORDERED: KETOROLAC 15 MG/ML 1 ML VIAL IVP PRN (10:54)
[2022-02-06] MEDS ORDERED: ONDANSETRON 4 MG/2 ML VIAL IVP PRN ×2 (10:54→18:55)
[2022-02-06] MEDS ORDERED: diphenhydrAMINE 50 MG/ML 1 ML VIAL IVP PRN ×3 (10:54→18:55)
[2022-02-06] MEDS ORDERED: NALOXONE 0.4 MG/ML 1 ML VIAL IV PRN ×2 (10:54→18:55)
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
--- NOTE | 2022-02-06 12:54 | P.OP ---
Date of Procedure: 02/06/22 Preoperative Diagnosis: 1. at 39 weeks and 1 day 2. Previous section 3. Family planning Postoperative Diagnosis: 1. at 39 weeks and 1 day 2. Previous section 3. Family planning Procedure(s) Performed: Repeat low transverse with tubal ligation Anesthesia: spinal Surgeon: Chiquita Kaplan Rolfer #1: Caitlin Odom Estimated Blood Loss (ml): 280 IV fluids (ml): 500 Urine output (ml): 200 Pathology: none sent Condition: stable Disposition: floor Operative Findings: Viable female, Apgars 8, 9, weight 6 lbs. 12 oz. normal uterus, tubes and ovaries. Description of Procedure: Patient was taken to the operating room where spinal anesthesia was found be adequate. She was prepped and draped in normal sterile fashion in dorsal supine position with a leftward tilt. Pfannenstiel skin incision was made the scalpel and carried through to the underlying layer of fascia with the scalpel. Fascia was incised in midline and carried bilaterally with the Obrien scissors. The superior aspect of the fascial incision was grasped with Porter clamps elevated and the underlying rectus muscles dissected off with the Obrien's. Attention was then turned to inferior aspect of same incision which in a similar fashion was grasped tented up and the underlying rectus muscles dissected off with the Obrien's. The rectus muscles were the midline and the peritoneum was identified tented up and entered sharply with the scalpel. The incision was extended superiorly and inferiorly with good visualization of the bladder. The bladder blade was inserted and the vesicouterine peritoneum was incised the Metzenbaums then carried bilaterally and bladder flap created digitally. A low transverse incision was then made on the uterus with the scalpel. This was carried bilaterally and digital manner. 's head delivered atraumatically, nose and mouth bulb suctioned, cord clamped and cut, infant handed off to waiting nurses. Apgars 8,9, weight 6 lbs. 12 oz. Placenta delivered manually, intact with three-vessel cord. The uterus is exteriorized and cleared of all clots and debris. The uterine incision was closed with 0 Vicryl in a running locked fashion. Both ovaries and tubes appeared normal. The right fallopian tube was grasped with hemostat and a window was made in the mesosalpinx with the Bovie. The fallopian tube was doubly ligated and a section was removed. The pedicles were cauterized with the Bovie. The left fallopian tube was grasped with a hemostat and a window was made in the mesosalpinx with the Bovie. The fallopian tube was doubly ligated and a section was removed. The pedicles were cauterized with the Bovie. The uterus was placed back into the abdomen. The peritoneum was reapproximated using 2-0 Vicryl in a running fashion. The fascia was reapproximated using 0 Vicryl in a running fashion. The subcutaneous tissues closed with 3-0 Vicryl running fashion. The skin was closed carlos. Patient tolerated the procedure well, sponge and instrument counts were correct times 2 and she was taken to the recovery room in stable condition.
[2022-02-06] MEDS: ACYCLOVIR 200 MG CAP PO SCH ×2 (16:13→22:35)
[2022-02-06 16:36] LABS: Amphetamine Screen,Urine Not Detected (NotDetected); Barbiturate Screen,Urine Not Detected (NotDetected); Benzodiazepines Screen,Urine Not Detected (NotDetected); Cocaine Screen,Urine Not Detected (NotDetected); Methadone Screen, Urine Not Detected (NotDetected); Opiate Screen,Urine Not Detected (NotDetected); Oxycodone Screen, Urine Not Detected (NotDetected); Phencyclidine Screen,Urine Not Detected (NotDetected); Tricyclic Antidepressant,Urine Not Detected (NotDetected); Urn Cannabinoid Scrn Detected (NotDetected)
[2022-02-06 17:11] LABS: Basophils # (A) 0.1 k/uL (0-0.2); Basophils % (A) 1 %; Eosinophils # (A) 0.1 k/uL (0-0.7); Eosinophils % (A) 1 %; HCT 33.2 % (34.0-46.0); HGB 10.6 gm/dL (11.4-16.0); Lymphocytes # (A) 2.1 k/uL (1.0-4.8); Lymphocytes % (A) 19 %; MCH 27.3 pg (25.0-35.0); MCV 85.1 fL (80.0-100.0); Mean Platelet Volume 7.3; Monocytes # (A) 0.6 k/uL (0-1.0); Monocytes % (A) 5 %; Neutrophils % (A) 74 %; Platelet Count 337 k/uL (150-450); WBC 10.9 k/uL (3.8-10.6)
[2022-02-06] MEDS ORDERED: diphenhydrAMINE 50 MG CAP PO PRN (18:55)
[2022-02-06] MEDS ORDERED: diphenhydrAMINE 25 MG CAP PO PRN (18:55)
[2022-02-06] MEDS ORDERED: METOCLOPRAMIDE 5 MG/ML 2 ML VIAL IVP PRN (18:55)
[2022-02-06] MEDS ORDERED: ZOLPIDEM 5 MG TAB PO PRN (18:55)
[2022-02-06] MEDS: SENNOSIDES-DOCUSATE SODIUM 1 EACH TAB PO SCH (20:45)
[2022-02-06] MEDS: ACETAMINOPHEN TAB 500 MG TAB PO SCH (20:45)
[2022-02-06] MEDS: KETOROLAC 15 MG/ML 1 ML VIAL IVP SCH (22:36)
[2022-02-06] MEDS: LACTATED RINGERS 1,000 ML IV SCH (23:54)
[2022-02-07] MEDS: ACETAMINOPHEN TAB 500 MG TAB PO SCH ×4 (02:12→22:25)
[2022-02-07] MEDS: IBUPROFEN 600 MG TAB PO SCH ×4 (02:21→19:51)
[2022-02-07] MEDS: KETOROLAC 15 MG/ML 1 ML VIAL IVP SCH ×2 (04:53→19:34)
[2022-02-07] MEDS: LACTATED RINGERS 1,000 ML IV SCH (05:40)
[2022-02-07 07:07] LABS: Basophils % (A) 0 %; Eosinophils # (A) 0.1 k/uL (0-0.7); Eosinophils % (A) 1 %; HCT 30.3 % (34.0-46.0); HGB 9.7 gm/dL (11.4-16.0); Hypochromasia Slight; Lymphocytes # (A) 1.8 k/uL (1.0-4.8); Lymphocytes % (A) 15 %; MCH 27.8 pg (25.0-35.0); MCHC 31.9 g/dL (31.0-37.0); MCV 87.2 fL (80.0-100.0); Mean Platelet Volume 7.2; Monocytes # (A) 0.5 k/uL (0-1.0); Monocytes % (A) 4 %; Neutrophils # (A) 9.9 k/uL (1.3-7.7); Neutrophils % (A) 80 %; Platelet Count 283 k/uL (150-450); RBC 3.47 m/uL (3.80-5.40); RDW 14.3 % (11.5-15.5); WBC 12.4 k/uL (3.8-10.6)
--- NOTE | 2022-02-07 07:40 | P.PNOBGPC ---
Subjective - Subjective Principal diagnosis: Status post repeat low transverse with TL postoperative day #1 Interval history: Patient seen and examined. Denies nausea, vomiting, chest pain, shortness of breath or any calf pain. She is tolerating regular diet and passing flatus. Patient reports: Reports appetite normal, Reports voiding normally, Reports pain well controlled, Reports ambulating normally [place]: doing well Objective - Vital Signs Latest vital signs: Vital Signs Temp Pulse Resp BP Pulse Ox 02/07/22 04:00 97.3 F L 58 L 12 100/64 100 02/07/22 00:00 97.8 F 64 14 90/50 98 02/06/22 20:00 97.7 F 72 14 105/63 100 02/06/22 16:00 97.6 F 70 18 93/59 100 Intake and Output 02/06/22 02/07/22 02/07/22 22:59 06:59 14:59 Output Total 1025 Balance -1025 Output: Urine 1025 Other: # Voids 1 - Exam Lungs: bilateral: normal Chest: Normal S1, Normal S2 Extremities: Present: normal Abdomen: Present: normal appearance, soft. Absent: distention, tenderness Incision: Present: normal, dry, intact Uterus: Present: normal, firm - Labs Labs: Abnormal Lab Results - Last 24 Hours (Table) 02/06/22 02/06/22 02/07/22 Range/Units 06:50 06:50 06:42 WBC 10.9 H 12.4 H (3.8-10.6) k/uL RBC 3.47 L (3.80-5.40) m/uL Hgb 10.6 L 9.7 L (11.4-16.0) gm/dL Hct 33.2 L 30.3 L (34.0-46.0) % Neutrophils # 8.0 H 9.9 H (1.3-7.7) k/uL U Marijuana (THC) Screen Detected H (NotDetected) Assessment and Plan (1) Previous section Current Visit: No Status: Resolved Code(s): Z98.891 - HISTORY OF UTERINE SCAR FROM PREVIOUS SURGERY SNOMED Code(s): 382030869 (2) 39 weeks gestation of Current Visit: Yes Status: Resolved Code(s): Z3A.39 - 39 WEEKS GESTATION OF SNOMED Code(s): 07030606 (3) Family planning Current Visit: Yes Status: Resolved Code(s): Z30.09 - ENCOUNTER FOR OTH GENERAL CNSL AND ADVICE ON CONTRACEPTION SNOMED Code(s): 495062874 (4) Status post repeat low transverse section Current Visit: Yes Status: Acute Code(s): Z98.891 - HISTORY OF UTERINE SCAR FROM PREVIOUS SURGERY SNOMED Code(s): 966874262 (5) Status post tubal ligation at time of delivery, current hosp Current Visit: Yes Status: Acute Code(s): O80 - ENCOUNTER FOR FULL-TERM UNCOMPLICATED DELIVERY; Z30.2 - ENCOUNTER FOR STERILIZATION SNOMED Code(s): 972113608 Plan: 1. Increase ambulation 2. By mouth pain medication
--- NOTE | 2022-02-07 08:39 | P.PN ---
Progress Note - Text Progress Note Date: 02/07/22 Postoperative day 1 status post section under spinal anesthesia, and i ntrathecal morphine given for postoperative analgesia, patient doing well, there is no anesthesia related complications, Patient had no headache, vital signs stable , Assessment and plan= postop day 1 status post , doing well there is no anesthesia related complication.. note= patient was seen at 06:40 morning today.
[2022-02-07 09:34] VITALS: RESP 16
[2022-02-07] MEDS: SENNOSIDES-DOCUSATE SODIUM 1 EACH TAB PO SCH ×2 (09:56→19:53)
[2022-02-07] MEDS: CITALOPRAM HYDROBROMIDE 20 MG TAB PO SCH (09:56)
[2022-02-07] MEDS: ARIPiprazole 5 MG TAB PO SCH (09:57)
[2022-02-07] MEDS: ACYCLOVIR 200 MG CAP PO SCH ×3 (09:57→22:26)
[2022-02-07] MEDS ORDERED: SIMETHICONE 80 MG CHEWABLE PO PRN (10:15)
[2022-02-08] MEDS: IBUPROFEN 600 MG TAB PO SCH ×3 (01:15→13:08)
[2022-02-08] MEDS: ACETAMINOPHEN TAB 500 MG TAB PO SCH ×2 (04:12→12:30)
--- NOTE | 2022-02-08 07:46 | P.DS ---
Providers Date of admission: 02/06/22 06:11 Expected date of discharge: 02/08/22 Attending physician: Chiquita Kaplan Primary care physician: Stated None - Discharge Diagnosis(es) (1) 39 weeks gestation of Current Visit: Yes Status: Resolved (2) Family planning Current Visit: Yes Status: Resolved (3) Status post repeat low transverse section Current Visit: Yes Status: Acute (4) Status post tubal ligation at time of delivery, current hosp Current Visit: Yes Status: Acute (5) Marijuana use Current Visit: Yes Status: Acute Hospital Course: Patient presented for repeat low transverse with tubal ligation. She underwent this procedure without complication. She denies nausea, vomiting, chest pain, shortness of breath or any calf pain. Her pain is well-controlled. She did go off unit yesterday without the nurse's knowledge and when she came back and said she smoked a bowl of marijuana. Her incision is clean, dry, intact with carlos which will be removed today. Patient will be discharged home postoperative day #2 in stable condition to follow-up with me in one week. Plan - Discharge Summary Discharge Rx Participant: No New Discharge Prescriptions: New Ibuprofen [Motrin] 600 mg PO Q6H #30 tab oxyCODONE HCL [OxyIR] 5 mg PO Q4HR PRN #18 tab PRN Reason: Pain Scale 4 - 6 No Action Pnv No.95/Ferrous Fum/Folic AC [ Multivitamin Tablet] 1 each PO DAILY Citalopram Hydrobromide [CeleXA] 20 mg PO DAILY ARIPiprazole [Abilify] 5 mg PO DAILY Acyclovir (Unknown Dose) 1 tab PO TID Discharge Medication List Pnv No.95/Ferrous Fum/Folic AC [ Multivitamin Tablet] 1 each PO DAILY 04/01/19 [History] ARIPiprazole [Abilify] 5 mg PO DAILY 02/02/22 [History] Acyclovir (Unknown Dose) 1 tab PO TID 02/02/22 [History] Citalopram Hydrobromide [CeleXA] 20 mg PO DAILY 02/02/22 [History] Ibuprofen [Motrin] 600 mg PO Q6H #30 tab 02/08/22 [Rx] oxyCODONE HCL [OxyIR] 5 mg PO Q4HR PRN #18 tab 02/08/22 [Rx] Follow up Appointment(s)/Referral(s): Chiquita Kaplan DO [Doctor of Osteopathic Medicine] - 03/21/22 3:45 pm (C/S post op appt-02/14/2022@1:30pm) Activity/Diet/Wound Care/Special Instructions: LÓPEZ LOPEZ P: [phone] Discharge Disposition: HOME SELF-CARE
[2022-02-08] MEDS: ARIPiprazole 5 MG TAB PO SCH (08:41)
[2022-02-08] MEDS: CITALOPRAM HYDROBROMIDE 20 MG TAB PO SCH (08:41)
[2022-02-08] MEDS: ACYCLOVIR 200 MG CAP PO SCH (08:41)
[2022-02-08 09:30] VITALS: BP 109/72; PULSE 79; TEMP 98.3
[2022-02-08] MEDS: SENNOSIDES-DOCUSATE SODIUM 1 EACH TAB PO SCH (09:30)
== END 2022-02-08 15:45 | disposition home or self-care (01) | DRG 784 ==
LOC: 4FBP 06:11
PROVIDERS: ADMIT Obstetrics & Gynecology; ATTEND Obstetrics & Gynecology
PROC: 0UB70ZZ Excision of Bilateral Fallopian Tubes, Open Approach (ICD-10-PCS; 2022-02-06)
PROC: 10D00Z1 Extraction of Products of Conception, Low, Open Approach (ICD-10-PCS; principal; 2022-02-06 08:00)
DX: O34.211 Maternal care for low transverse scar from previous cesarean delivery (principal); O99.324 Drug use complicating childbirth; F12.90 Cannabis use, unspecified, uncomplicated; J45.909 Unspecified asthma, uncomplicated; O99.52 Diseases of the respiratory system complicating childbirth; Z30.2 Encounter for sterilization; Z37.0 Single live birth; Z3A.39 39 weeks gestation of pregnancy; Z79.899 Other long term (current) drug therapy; Z87.891 Personal history of nicotine dependence
CPT/HCPCS: 80306; 85025; 86850; 86900; 86901

== ENCOUNTER 2022-08-11 08:53 | Day surgery (SDC) | payer OTHER ==
[2022-08-09 15:15] VITALS: BMI 26.6
[~2022-08-11 08:53] MED LIST: LACTATED RINGERS 1,000 ML IV SCH; LIDOCAINE 1% (10MG/ML) FOR IV START INTRADERMA PRN
[2022-08-11 09:48] VITALS: RESP 16; TEMP 97
[2022-08-11 10:15] LABS: Glucose,Whole Blood 86 mg/dL (70-110)
[2022-08-11] MEDS ORDERED: MIDAZOLAM 2 MG/2 ML VIAL ONE (10:36)
[2022-08-11] MEDS ORDERED: PROPOFOL 10 MG/ML 20 ML VIAL IV ONE (10:36)
[2022-08-11] MEDS ORDERED: fentaNYL (PF) 50 MCG/ML 2 ML AMP ONE (10:36)
--- NOTE | 2022-08-11 10:51 | P.PCN ---
Date of Procedure: 08/11/22 Procedure(s) Performed: BRIEF HISTORY: Patient is a 32-year-old pleasant white female scheduled for an elective colonoscopy as a part of evaluation of chronic diarrhea for the last several months duration. PROCEDURE PERFORMED: Colonoscopy with biopsy. PREOPERATIVE DIAGNOSIS: Chronic diarrhea. IV sedation per Anesthesia. PROCEDURE: After informed consent was obtained, the patient, was brought into the endoscopy unit. IV sedation was administered by Anesthesia under continuous monitoring. Digital rectal examination was normal. Initially the Olympus CF-160 flexible video colonoscope was then inserted in the rectum, gradually advanced into the cecum without any difficulty. Careful examination was performed as the scope was gradually being withdrawn. Ileocecal valve and the appendiceal orifice were visualized and appeared normal. Prep was excellent. Mucosa of the cecum, ascending colon, transverse colon, descending colon, sigmoid colon, and rectum appeared normal. Biopsies were done from ascending and descending colon to rule out metastatic/collagenous colitis. Retroflexion was performed in the rectum and no lesions were seen. The patient tolerated the procedure well. IMPRESSION: Normal-appearing colon from rectum to cecum with no evidence of colorectal neoplasia . RECOMMENDATIONS: Findings of this examination were discussed with the patient as well as a family. She was advised to follow with the biopsy results. She'll be seen in office in 2-3 weeks..
[2022-08-11 11:27] VITALS: BP 123/83; PULSE 83
== END 2022-08-11 11:26 | disposition home or self-care (01) ==
LOC: ORWHC2ENDO 08:53
PROVIDERS: ATTEND Internal Medicine Gastroenterology
DX: R19.7 Diarrhea, unspecified (principal); J45.909 Unspecified asthma, uncomplicated; F17.200 Nicotine dependence, unspecified, uncomplicated; F41.9 Anxiety disorder, unspecified; F31.9 Bipolar disorder, unspecified; F43.10 Post-traumatic stress disorder, unspecified; Z79.51 Long term (current) use of inhaled steroids; Z79.899 Other long term (current) drug therapy
CPT/HCPCS: 81025; 88305; 45380; J2250; J3010; J2704